=== PATIENT | male | born 2000 | race African-American/Black ===

== ENCOUNTER 2019-10-19 13:00 | Emergency (ER) | payer OTHER ==
[~2019-10-19] VITALS: Ht 180.3 cm; Wt 70.8 kg
[2019-10-19 14:11] LABS: BASOPHILS 0.3 % (0.0-2.0); EOSINOPHILS 0.1 % (0.0-3.0); HEMATOCRIT 44.7 % (42.0-52.0); LYMPHOCYTES 18.2 % (24.0-44.0); MCH 30.7 pg (26.0-34.0); MCHC 33.6 g/dL (28.0-37.0); MCV 91.2 fL (80.0-100.0); MONOCYTES 4.9 % (1.0-8.0); POLYS 76.5 % (36.0-66.0); RDW 13.7 % (10.5-14.5); WBC 5.3 thou/uL (4.0-11.0)
[2019-10-19 14:40] LABS: ANION GAP 9 mmol/L (7-16); BUN 7 mg/dL (7-18); CHLORIDE 102 mmol/L (98-107); CO2 27 mmol/L (21-32); CREATININE 1.1 mg/dL (0.7-1.3); GLUCOSE 116 mg/dL (74-106); POTASSIUM 3.9 mmol/L (3.5-5.1); SODIUM 138 mmol/L (136-145)
[2019-10-19 14:51] LABS: ALBUMIN 4.2 g/dL (3.4-5.0); SGOT 20 U/L (15-37); SGPT 19 U/L (30-65); TOTAL BILIRUBIN 0.8 mg/dL (0.2-1.0); TOTAL PROTEIN 7.2 g/dL (6.4-8.2); TROPONIN-I <0.06 ng/mL (<0.06)
[2019-10-19 15:10] LABS: PLATELET COUNT 119 thou/uL (150-400)
[2019-10-19 15:23] LABS: URINE BILIRUBIN NEGATIVE (Negative); URINE BLOOD NEGATIVE (Negative); URINE CLARITY SL CLOUDY; URINE COLOR YELLOW; URINE GLUCOSE-RANDOM* NEGATIVE (Negative); URINE KETONES TRACE (Negative); URINE LEUKOCYTES-REFLEX NEGATIVE (Negative); URINE NITRITE-REFLEX NEGATIVE (Negative); URINE PROTEIN (DIPSTICK) NEGATIVE (Negative)
[2019-10-19 15:34] LABS: AMP/METHAMP Negative (Negative); BARBITURATES Negative (Negative); BENZODIAZEPINES Negative (Negative); COCAINE Negative (Negative); METHADONE Negative (Negative); OPIATES Negative (Negative); PCP Negative (Negative)
[2019-10-19 15:56] VITALS: BP 100/63
--- NOTE | 2019-10-21 08:05 | EKG ---
[facility] [place] [address] ELECTROCARDIOGRAM REPORT Name: SHASHA LOPEZ Room #: [facility]#: [id number] Admission: 10/19/19 Attend Phys: Discharge: 10/19/19 Date of : 89 Report #: [id number] THIS REPORT FOR: cc: PADMA - Jodie family physician/PCP PADMA - Jodie family physician/PCP Kain Perrin MD [facility] THIS REPORT FOR: //name// [facility] ED Test Date: 2019-10-19 Test Time: 13:26:43 Pat Name: SHASHA LOPEZ Department: Room: Gender: [employer]: KALYN MCMULLEN : 2000 Requested By: Susana Anthony Order Number: [id number] MD: Kain Perrin Measurements Intervals [place] Rate: 70 P: 43 RI: 181 QRS: 74 QRSD: 122 T: 36 QT: 398 QTc: 430 Interpretive Statements Sinus rhythm Right ventricular conduction delay No previous ECG available for comparison Electronically Signed On 10-21-2019 8:05:30 CDT by Kain Perrin [email or web address] <ELECTRONICALLY SIGNED> By: Kain Perrin MD, FAC 10/21/19 08 1326 Kain Perrin MD, [facility] /EPI
--- NOTE | 2019-10-21 08:12 | EKG ---
[facility] [place] [address] ELECTROCARDIOGRAM REPORT Name: SHASHA LOPEZ Room #: [facility]#: [id number] Admission: 10/19/19 Attend Phys: Discharge: 10/19/19 Date of : [birth year] Report #: [id number] THIS REPORT FOR: cc: PADMA - Jodie family physician/PCP PADMA - Jodie family physician/PCP Kain Perrin MD [facility] THIS REPORT FOR: //name// [facility] ED Test Date: 2019-10-19 Test Time: 15:21:13 Pat Name: SHASHA LOPEZ Department: Room: Gender: Civil Litigation Attorney: : 2000 Requested By: Susana Anthony Order Number: [id number] : Kain Perrin Measurements Intervals [place] Rate: 47 P: 57 HI: 185 QRS: 80 QRSD: 101 T: 42 QT: 415 QTc: 367 Interpretive Statements Sinus bradycardia Right ventricular conduction delay Compared to ECG 10/19/2019 13:26:43 Heart rate has slowed Electronically Signed On 10-21-2019 8:12:42 CDT by Kain Perrin [email or web address] <ELECTRONICALLY SIGNED> By: Kain Perrin MD, FACC 10/21/19 0812 1521 1521 Kain Perrin MD, [facility] /EPI
== END 2019-10-19 15:56 | disposition home or self-care (01) ==
LOC: ER 13:00
PROVIDERS: Physician Assistant
DX: R00.2 Palpitations (principal); R00.1 Bradycardia, unspecified; E86.0 Dehydration; F12.10 Cannabis abuse, uncomplicated